=== PATIENT | female | born 1975 | race Caucasian/White ===

== ENCOUNTER → 2019-12-07 | Day surgery (SDC) | payer OTHER ==
[~2019-12-07] MED LIST: ALBUTEROL SULFATE 2.5 MG/3 ML NEBU. NEB PRN; ATROPINE 0.5 MG/5 ML DISP.SYRIN. IV PRN; CETI10TA24 PO; HYDR12.59 PO; IV RINGERS SOLUTION,LACTATED 1,000 ML IV SCH; ONDANSETRON PF 4 MG/2 ML VIAL. IV PRN; PHENOL ORAL SPRAY 177ML BOTTLE. MM PRN; PROPOFOL 40 ML IV ONE; diphenhydrAMINE 50 MG/ML VIAL IV PRN
[2019-12-07 13:21] LABS: U PREG PATIENT NEGATIVE (NEG)
[2019-12-07 14:02] VITALS: BP 123/79
--- NOTE | 2019-12-11 17:06 | PATHOLOGY ---
[facility] Accession Number: [id number] . 01 Material submitted: . PART A: esophagus - ESOPHAGUS PART B: esophagus - DISTAL ESOPHAGUS. Modifiers: distal . 01 Clinical history: . Dysphagia . 02 Diagnosis: A. Esophageal biopsy #1: - Segments of gastric mucosa showing mild chronic gastritis. . B. Esophageal biopsy #2, distal esophagus: - Segments of hyperplastic squamous esophageal mucosa and segment of acute inflammatory exudate, consistent with reflux esophagitis with ulceration. . (JPM:alessandro; 12/11/2019) [facility] 12/11/2019 0823 Local . 02 Comment: Sections of esophageal biopsy #1 reveal segments of gastric mucosa showing congestion and mild chronic inflammation. A properly controlled immunoperoxidase stain for Helicobacter is negative for Helicobacter organisms. . Sections of esophageal biopsy #2 reveal segments of tangentially oriented hyperplastic squamous esophageal mucosa, and a segment of acute inflammatory exudate. The findings are consistent with reflux esophagitis with ulceration. There is no evidence of Walker's change, dysplasia, or malignancy. (JPM:alessandro; 12/11/2019) . Special stain performed: Immunoperoxidase stain for Helicobacter . 02 Electronically signed: . Lee Helms MD, Pathologist NPI- [id number] . 01 Gross description: . A. The specimen is received in formalin, labeled "Clubb, Che, esophagus BX 1" and consists of 2 fragments of piña tissue measuring 0.2 x 0.2 cm and 0.5 x 0.3 cm which are entirely submitted in A1. . B. The specimen is received in formalin, labeled "Clubb, Che, distal esophagus 2" and consists of 3 fragments of pink-piña tissue measuring 0.3 cm each which are entirely submitted in B1. (SDY; 12/10/2019) SYU/SYU 12/10/2019 1647 Local . 02 Pathologist provided ICD-10: K29.50, K20.9 . 02 CPT . 058569, 749578, R84601 Specimen Comment: A courtesy copy of this report has been sent to [phone] Specimen Comment: Report sent to Performed at: [address] [facility], [place] [id number] MD Brayden Kate MD Phone: [phone] [facility]formed at: [facility] [address] [place], [place] [id number] MD Lee Helms MD Phone: [phone]
== END ==
LOC: SURG 11:01
PROVIDERS: ATTEND Internal Medicine Gastroenterology
DX: K21.0 Gastro-esophageal reflux disease with esophagitis (principal); K29.50 Unspecified chronic gastritis without bleeding; K22.70 Barrett's esophagus without dysplasia; K44.9 Diaphragmatic hernia without obstruction or gangrene; E66.9 Obesity, unspecified; Z68.30 Body mass index [BMI] 30.0-30.9, adult
CPT/HCPCS: 43239; 81025; J2704; J7120; 88305; 88342

== ENCOUNTER 2019-12-21 16:16 | Emergency (ER) | payer OTHER ==
[~2019-12-21] VITALS: Ht 167.6 cm; Wt 89.5 kg
[~2019-12-21 16:16] MED LIST changes: -ALBUTEROL SULFATE 2.5 MG/3 ML NEBU. NEB PRN; -ATROPINE 0.5 MG/5 ML DISP.SYRIN. IV PRN; -IV RINGERS SOLUTION,LACTATED 1,000 ML IV SCH; -ONDANSETRON PF 4 MG/2 ML VIAL. IV PRN; -PHENOL ORAL SPRAY 177ML BOTTLE. MM PRN; -PROPOFOL 40 ML IV ONE; -diphenhydrAMINE 50 MG/ML VIAL IV PRN
--- NOTE | 2019-12-21 17:05 | EKG ---
[address] [address] Test Date: 2019-12-21 Test Time: 16:50:15 Pat Name: DEJUAN BRUNO Department: Room: Gender: F Regrader: : 1975 Requested By: TIAGO ABERNATHY Order Number: [id number] Reading MD: Measurements Intervals [place] Rate: 71 P: 28 WV: 134 QRS: 27 QRSD: 84 T: 34 QT: 408 QTc: 448 Interpretive Statements SINUS RHYTHM R-S TRANSITION ZONE IN V LEADS DISPLACED TO THE RIGHT OTHERWISE NORMAL ECG RI6.01 No previous ECG available for comparison
[2019-12-21] MEDS ORDERED: ASPIRIN 325 MG TABLET PO ONE (17:15)
--- NOTE | 2019-12-21 17:19 | RAD ---
CHEST PA LATERAL Technique: PA and lateral views of the chest were obtained. Clinical History: Chest pain Comparison: None. Findings: The heart and pulmonary vasculature appear within normal limits. The lungs are clear. The pleural margins are clear. Impression: No acute chest process is seen. Electronically signed by: Bryce Heller III, MD (12/21/2019 5:15 PM) [id number]
[2019-12-21 17:40] LABS: BASO % 1 % (0-3); EOS % 1 % (0-3); HEMATOCRIT 41.7 % (36.0-47.0); HEMOGLOBIN 14.3 g/dL (12.0-15.5); LYMPH # 2.3 x10^3/uL (1.0-4.8); LYMPH % 39 % (24-48); MEAN CORPUSCULAR HEMOGLOBIN 32 pg (25-35); MEAN CORPUSCULAR HGB CONC 34 g/dL (31-37); MEAN CORPUSCULAR VOLUME 92 fL (79-100); MONO # 0.4 x10^3/uL (0.0-1.1); MONO % 7 % (0-9); NEUT % 52 % (31-73); PLATELET COUNT 193 x10^3/uL (140-400); RED BLOOD COUNT 4.52 x10^6/uL (3.50-5.40); RED CELL DISTRIBUTION WIDTH 12.9 % (11.5-14.5); WHITE BLOOD COUNT 5.8 x10^3/uL (4.0-11.0)
--- NOTE | 2019-12-21 17:49 | PHYS DOC ---
Past History Past Medical History: GERD, Hypertension Past Medical History Hiatal hernia, parotid gland tumor, esophageal ulcers Past Surgical History Foot surgery 2018 Smoking: Non-smoker Alcohol Use: Occasionally Drug Use: None Adult General Chief Complaint Chief Complaint: CHEST PAIN HPI HPI Patient is a 44-year-old female with past medical history of hiatal hernia, GERD, parotid gland tumor in remission and hypertension who presents from her equity holder's office for evaluation of chest pressure. Patient states that this morning she woke and after getting out of bed noticed that she had persistent dry cough that inevitably progressed to substernal pressure to the left of her sternum. She has never had anything like this in the past and states that on all other incidences, Tessalon Perles have been effective for her cough although today they were not. She denies any radiation of her symptoms, nausea, vomiting, diaphoresis, exertional component, shortness of breath, vision changes, focal weakness or paresthesias. Nothing makes the pain better or worse. Pain is constant and presents upon arrival to the emergency department. She did state that when she takes a deep inspiration this will force her to cough. She denies any history of the no thromboembolism, hemoptysis, hormone therapy, immo bilization, recent surgery for active cancer. She denies family history of coronary artery disease. Review of Systems Review of Systems Constitutional: Denies fever or chills HENT: Denies nasal congestion, rhinorrhea or sore throat Respiratory: Reports dry cough. Denies shortness of breath, dyspnea on exertion, or hemoptysis Cardiovascular: Reports chest pressure. Denies palpitations GI: Denies abdominal pain, nausea, or vomiting : Denies dysuria or hematuria Musculoskeletal: Denies myalgias or joint pain Neurologic: Denies weakness or sensory changes Complete systems were reviewed and found to be within normal limits, except as documented in this note. Current Medications Current Medications Current Medications Medications (Trade) Dose Ordered Sig/Nilam Start Time Stop Time Status Last Admin Dose Admin Aspirin (Tanvir Aspirin) 325 mg 1X ONCE 12/21/19 17:15 12/21/19 17:16 DC 12/21/19 17:15 325 MG Allergies Allergies Allergies Coded Allergies Type Severity Reaction Last Updated Verified acetaminophen Allergy Unknown 12/03/19 Yes oxycodone Allergy Unknown 12/03/19 Yes Physical Exam Physical Exam Constitutional: Well developed, well nourished, no acute distress, non-toxic appearance HENT: Normocephalic, atraumatic, oropharynx moist Eyes: Conjunctiva normal, no discharge Cardiovascular: Heart rate normal, regular rhythm, S1 and S2 present without murmur or gallop Lungs & Thorax: Bilateral breath sounds clear to auscultation, no wheezing Abdomen: Soft, nondistended and without tenderness Skin: Warm, dry, no erythema, no rash Extremities: Radial pulses +2 bilaterally, no cyanosis or edema Neurologic: Alert and oriented, no focal deficits noted Psychologic: Affect normal, judgment normal Current Patient Data Lab Results Laboratory Tests Test 12/21/19 17:15 POC Urine HCG, Qualitative hcg negative (Negative) EKG EKG 1650: Normal sinus rhythm with a rate of 71. Normal axis. Intervals within normal limits. No ST segment elevation or depression. [] Radiology/Procedures Radiology/Procedures PROCEDURE: CHEST PA & LATERAL CHEST PA LATERAL Technique: PA and lateral views of the chest were obtained. Clinical History: Chest pain Comparison: None. Findings: The heart and pulmonary vasculature appear within normal limits. The lungs are clear. The pleural margins are clear. Impression: No acute chest process is seen. Electronically signed by: Bryce Heller III, MD (12/21/2019 5:15 PM) [id number] Course & Med Decision Making Course & Med Decision Making Pertinent Labs and Imaging studies reviewed. (See chart for details) Patient is a pleasant 44-year-old female sent by her equity holder for concerns of chest pressure that began this morning. On arrival in the emergency department patient is well-appearing and hemodynamically stable. Her description of her chest discomfort is very atypical for cardiac etiology in that she denies nausea, vomiting, diaphoresis or any exertional component to her discomfort. Her only risk factor for coronary artery disease is that of hypertension. She denies any history of venous thromboembolism and although currently perimenopausal, is not receiving any hormonal therapy. Patient is without clinical signs or symptoms of DVT. Her history of parotid tumor is very remote and without recurrence. She is PERC negative and thus I feel pulmonary embolism to be far less likely. Will plan to obtain a second labs and cardiac workup for her chest pressure. EKG normal sinus rhythm with appropriate rate and without signs of ischemia. Troponin within normal limits. Chest x-ray clear. Patient stable for discharge with outpatient follow-up with PCP/GI. Discussed findings and plan with patient and family, who acknowledge understanding and agreement. Dragon Disclaimer Dragon Disclaimer This electronic medical record was generated, in whole or in part, using a voice recognition dictation system. Departure Departure: Impression: Primary Impression: Chest pain Disposition: HOME, SELF-CARE Condition: STABLE Referrals: TANNA PURVIS II, MD (PCP) Patient Instructions: Chest Pain (Nonspecific), [id number] HEART Score for Chest Pain PTs The HEART Score for CP Pts HEART Score for Chest Pain: HEART Score for Chest Pain Response (Comments) Value History Slighlty/Non-Suspicious 0 ECG Normal 0 Age >45 - < 65 1 Risk Factors 1 or 2 Risk Factors 1 Troponin < Normal Limit 0 Total 2 Risk Factors: Risk Factors: DM, Current or recent (<one month) smoker, HTN, HLP, family history of CAD, obesity. Risk Scores: Score 0 - 3: 2.5% MACE over next 6 weeks - Discharge Home Score 4 - 6: 20.3% MACE over next 6 weeks - Admit for Clinical Observation Score 7 - 10: 72.7% MACE over next 6 weeks - Early Invasive Strategies PERC Rule for PE PERC Rule for PE Response (Comments) Value Age > 50: No 0 HR > 100: No 0 Sa02 on room air <95%: No 0 Unilateral leg swelling: No 0 Hemoptysis: No 0 Recent surgery or trauma: No 0 Prior PE or DVT: No 0 Hormone use: No 0 Total 0 Problem Qualifiers Primary Impression: Chest pain Chest pain type: unspecified Qualified Codes: R07.9 - Chest pain, unspecified TIAGO ABERNATHY DO Dec 21, 2019 17:48
[2019-12-21 17:52] LABS: CALCIUM 9.4 mg/dL (8.5-10.1); CREATININE 0.9 mg/dL (0.6-1.0); GFR 67.4; POTASSIUM 3.8 mmol/L (3.5-5.1)
[2019-12-21 18:06] LABS: BILIRUBIN,URINE NEG (NEG); CLARITY,URINE CLEAR; COLOR,URINE YELLOW; GLUCOSE,URINE NEG (NEG); UROBILINOGEN,URINE 0.2 mg/dL (0.2 mg/dL)
[2019-12-21 18:07] LABS: BACTERIA,URINE 0 /HPF (0-FEW); NITRITE,URINE NEG (NEG); RBC,URINE OCC /HPF (0-2); SQUAMOUS EPITHELIAL CELL,UR FEW /LPF; WBC,URINE OCC /HPF (0-4)
[2019-12-21 18:07] LABS: ALBUMIN/GLOBULIN RATIO 1.4 (1.0-1.7); MAGNESIUM 2.1 mg/dL (1.8-2.4); TOTAL BILIRUBIN 0.2 mg/dL (0.2-1.0); TOTAL PROTEIN 6.9 g/dL (6.4-8.2)
[2019-12-21 18:19] VITALS: BP 156/96
== END 2019-12-21 18:34 | disposition home or self-care (01) ==
LOC: ER 16:16
DX: R07.2 Precordial pain (principal); K21.9 Gastro-esophageal reflux disease without esophagitis; I10 Essential (primary) hypertension; Z88.8 Allergy status to other drugs, medicaments and biological substances; Z88.5 Allergy status to narcotic agent
CPT/HCPCS: 36415; 71046; 80053; 81001; 81025; 82553; 83690; 83735; 83880; 84484; 85025; 85610; 85730; 93005; 99285

== ENCOUNTER → 2020-02-29 | Day surgery (SDC) | payer OTHER ==
[~2020-02-29] MED LIST changes: +CELE100C PO; +IPRATRPIUM/ALBUTEROL 0.5/2.5MG 3 ML NEBU. NEB PRN; +IV RINGERS SOLUTION,LACTATED 1,000 ML IV SCH; +LANS30CA66 PO; +PROPOFOL 10,000 MCG/ML (20ML) VIAL IV ONE; +TRAM50TA PO
[2020-02-29 11:06] LABS: U PREG PATIENT NEGATIVE (NEG)
[2020-02-29 12:09] VITALS: BP 124/86
== END | disposition home or self-care (01) ==
LOC: SURG 09:55
PROVIDERS: ATTEND Internal Medicine Gastroenterology
DX: R13.10 Dysphagia, unspecified (principal); Z11.59 Encounter for screening for other viral diseases; K21.0 Gastro-esophageal reflux disease with esophagitis; K31.89 Other diseases of stomach and duodenum; I10 Essential (primary) hypertension; K29.60 Other gastritis without bleeding; Z88.8 Allergy status to other drugs, medicaments and biological substances; Z98.890 Other specified postprocedural states
CPT/HCPCS: 43450; 81025; 87635; J2704; J7120